=== PATIENT | female | born 1975 | race Two or more races ===

== ENCOUNTER 2017-09-10 21:55 | Emergency (ER) | payer OTHER ==
[~2017-09-10] VITALS: Ht 152.4 cm; Wt 65.8 kg
[2017-09-10] MEDS ORDERED: ACETAMINOPHEN ES 500 MG TABLET PO ONE (22:30)
[2017-09-10] MEDS ORDERED: LORAZEPAM INJ 2 MG/ML VIAL IV ONE (22:30)
[2017-09-10] MEDS ORDERED: IV NS 0.9% 1,000 ML BAG IV ONE (22:30)
[2017-09-10] MEDS ORDERED: LORAZEPAM INJ 2 MG/ML VIAL ONE (22:30)
[2017-09-10] MEDS ORDERED: ACETAMINOPHEN ES 500 MG TABLET ONE (22:32)
[2017-09-10] MEDS ORDERED: LABETALOL HCL IV 100MG VIAL ONE (23:11)
[2017-09-10] MEDS ORDERED: hydrALAZINE HCL IV 20 MG VIAL ONE (23:12)
[2017-09-10] MEDS ORDERED: LABETALOL HCL IV 100MG VIAL IV ONE (23:30)
[2017-09-10] MEDS ORDERED: hydrALAZINE HCL IV 20 MG VIAL IV ONE (23:30)
[2017-09-10 23:36] VITALS: BP 166/90
== END 2017-09-10 23:45 ==
LOC: ER 22:00
DX: Z02.89 Encounter for other administrative examinations (principal); E86.0 Dehydration; R51 Headache; R45.1 Restlessness and agitation; R03.0 Elevated blood-pressure reading, without diagnosis of hypertension
CPT/HCPCS: 93005; 96361; 96374; 96375; 99284; A4606; J0360; J2060; J7030; Z7610; J3490

== ENCOUNTER 2022-03-16 21:57 | Inpatient (IN) | payer MEDICAID ==
[~2022-03-16] VITALS: Ht 152.4 cm; Wt 71.2 kg
[2022-03-16] MEDS ORDERED: LOSA1TAB39 PO (22:28)
[2022-03-16] MEDS ORDERED: AMLO-213 PO (22:28)
[2022-03-16 22:30] VITALS: BP 146/92
--- NOTE | 2022-03-16 22:40 | NUR ---
RN notes Received report from [facility] ER, Nilam He RN at 2054.
--- NOTE | 2022-03-16 22:40 | NUR ---
shut off worker notes Received Pt direct admit from [facility]. Pt arrived accompanied by two EMT (Delmi and Nasim. Pt is alert and orientedX4. VS is stable. on room air. No SOB. no S/S of distress noted. Pt is able to ambulates with a steady gait. IV site at LFA# 20 is clean, intact and flushes easily. Skin assessment is done and performed. Pt's skin is intact. Pt's belonging was checked by DYLAN Kirk and signed by Pt. [place] Pt to the room and the use of call light. Safety precautions is maintained. bed at low position, brakes locked, side rails upX2, hob elevated and call light is within reach. Will continue to monitor.
[2022-03-16] MEDS ORDERED: Z GUARD REMEDY 4 OZ OINT TP PRN (23:00)
[2022-03-16] MEDS ORDERED: ONDANSETRON HCL/PF 4 MG/2 ML VIAL IVP PRN (23:00)
[2022-03-16] MEDS ORDERED: ZOLPIDEM TARTRATE 5 MG TABLET PO PRN (23:00)
[2022-03-16] MEDS ORDERED: PHARMACY ADD 1 AMP MVI TO IVF DAILY ONE BAG XX PRN (23:00)
[2022-03-16] MEDS ORDERED: MAGNESIUM HYDROXIDE 30 ML UDC PO PRN (23:00)
[2022-03-16] MEDS ORDERED: Folic acid 1 MG in IV D5W 50 ML IV SCH (23:00)
[2022-03-16] MEDS ORDERED: MAG HYDROX/AL HYDROX/SIMETH 30 ML UDC PO PRN (23:00)
[2022-03-16] MEDS ORDERED: Thiamine 100 MG in IV D5W 50 ML IV SCH (23:00)
[2022-03-16] MEDS: IV NS 0.9% 1,000 ML IV SCH (23:26)
[2022-03-16] MEDS ORDERED: Thiamine 100 MG/ML VIAL ONE (23:42)
[2022-03-16] MEDS ORDERED: Folic acid 1 MG/0.2 ML VIAL ONE (23:42)
[2022-03-16] MEDS: LORAZEPAM INJ 2 MG/ML VIAL IV PRN (23:48)
--- NOTE | 2022-03-16 23:48 | NUR ---
RN notes Pt is feeling anxious and requesting meds. administered ativan 2 mg/iv push/prn as ordered for anxiety. safety precautions is maintained. will continue to monitor.
--- NOTE | 2022-03-17 | NUR ---
RN notes Called House sup. regarding Pt's MVI. Per Yudy fleming RN, we don't have MVI at this time. Will call pharmacy in the morning.
[2022-03-17 06:08] LABS: BASOPHILS % (AUTO) 0.7 % (0.0-2.0); EOSINOPHILS % (AUTO) 5.3 % (0.0-6.0); HEMATOCRIT 30 % (33-45); HEMOGLOBIN 10.2 g/dL (11.5-14.8); LYMPHOCYTES # (AUTO) 0.4 K/uL (0.8-4.8); LYMPHOCYTES % (AUTO) 13.6 % (20.0-44.0); MEAN CORPUSCULAR HGB CONC 35 g/dl (31.0-36.0); MEAN CORPUSCULAR VOLUME 92 fL (82-100); MONOCYTES # (AUTO) 0.2 K/uL (0.1-1.30); MONOCYTES % (AUTO) 7.9 % (2.0-12.0); NEUTROPHILS # (AUTO) 2.1 K/uL (1.8-8.9); NEUTROPHILS % (AUTO) 72.5 % (43.0-81.0); PLATELET COUNT (AUTO) 63 K/uL (150-450); RED BLOOD CELL COUNT(AUTO) 3.22 MIL/uL (4.0-5.2); WHITE BLOOD COUNT (AUTO) 2.9 K/uL (4.3-11.0)
--- NOTE | 2022-03-17 06:14 | NUR ---
RN notes Pharmacist Selam called regarding MVI. Informed pharmacist that we don't have MVI last night. And also informed pharmacist that only NS is infuising. Pharmacist stated that will have MVI today and will adjust the time. Will endorse to am nurse.
--- NOTE | 2022-03-17 06:37 | NUR ---
RN closing notes Pt is resting in bed comfortably. Pt is alert and orientedX4. On room air. No SOB. No S/s of distress noted. VS is stable. afebrile. IV site at LFA# 20 is clean, intact and infusing well NS@ 100 ml/hr. Routine meds were given as ordered. Kept Pt clean, dry and comfortable. Safety precautions is maintained. Bed at low position, brakes locked, side rails upX2, hob elevated and call light is within reach. Will endorse to am nurse for EMMANUEL.
[2022-03-17] MEDS ORDERED: MVI ADULT 10ML VIAL = 1AMP 10 ML in IV NS 0.9% 1,000 ML IV PRN (07:00)
[2022-03-17 07:09] LABS: EOSINOPHILS % (MANUAL) 10 % (0-4); LYMPHOCYTES % (MANUAL) 12 % (16-48); MONOCYTES % (MANUAL) 6 % (0-11.0); NEUTROPHILS % (MANUAL) 72 (42-76)
--- NOTE | 2022-03-17 07:26 | NUR ---
MS RN OPENING NOTES 304 RECEIVED PATIENT RESTING IN BED AWAKE, ALERT. PATIENT IS ORIENTED X4 AND STABLE ON ROOM AIR. ABLE TO MAKE NEEDS KNOWN. NO S/S OF SOB OR DISTRESS NOTED. VS STABLE PER PATIENT. IV SITE LFA #20 IS INTACT AND PATENT RUNNING NS @ 100ML/HR. SKIN INTACT. SAFETY PRECAUTIONS IN PLACE: BED AT LOW POSITION, BREAKS LOCKED, SIDE RAILS UP X2, HOB ELEVATED AND CALL LIGHT WITHIN REACH. WILL CONTINUE TO MONITOR FOR EMMANUEL.
[2022-03-17 08:32] VITALS: BP 114/79
[2022-03-17] MEDS ORDERED: LOSARTAN/HCTZ 50-12.5MG/ 1 EA TABLET PO SCH (09:00)
[2022-03-17] MEDS ORDERED: LOSARTAN POTASSIUM 50 MG TABLET PO SCH (09:00)
[2022-03-17 09:25] LABS: CALCIUM, SERUM 8.3 mg/dL (8.5-10.1); CREATININE 2.3 mg/dL (0.6-1.3); MAGNESIUM 1.5 mg/dL (1.8-2.4); PHOSPHORUS 4.2 mg/dL (2.5-4.9); POTASSIUM 3.6 mmol/L (3.5-5.1)
[2022-03-17] MEDS: CYANOCOBALAMIN 500 MCG TABLET PO SCH (10:06)
[2022-03-17] MEDS: AMLODIPINE BESYLATE 10 MG TABLET PO SCH (10:06)
[2022-03-17] MEDS: HYDROCHLOROTHIAZIDE 25 MG TABLET PO SCH (10:06)
[2022-03-17] MEDS: IV NS 0.9% 1,000 ML IV SCH ×2 (10:07→19:00)
[2022-03-17] MEDS: LORAZEPAM INJ 2 MG/ML VIAL IV PRN (10:42)
--- NOTE | 2022-03-17 10:42 | NUR ---
PT WAS FEELING ANXIOUS AND WANTED TO CALM DOWN. PRN ATIVAN GIVEN AT 1042. WILL CONTINUE TO MONITOR AND ASSESS NEEDED.
--- NOTE | 2022-03-17 12:41 | NUR ---
RN NOTES PT NOTED WITH LOW LEVEL MAGNESIUM 1.5, DR. SANFORD NOTIFIED, NEW ORDER TO GIVE MAGNESIUM 1MG IV X 2 DOSES. WILL CARRY OUT NEW ORDER.
[2022-03-17] MEDS ORDERED: Magnesium 1GM/D5W 100ML PREMIX PIGGYBACK IV ONE (13:00)
[2022-03-17] MEDS: Magnesium 1GM/D5W 100ML PREMIX 100 ML IV SCH ×2 (13:40→14:47)
[2022-03-17 16:40] VITALS: BP 113/69
--- NOTE | 2022-03-17 19:00 | NUR ---
RN opening notes Pt is resting in bed comfortably. Pt is alert and orientedX4. On room air. No SOB. No S/s of distress noted. IV site at LFA# 20 is clean, intact and infusing well NS@ 100 ml/hr. Safety precautions is maintained. Bed at low position, brakes locked, side rails upX2, hob elevated and call light is within reach. Will continue to monitor.
--- NOTE | 2022-03-17 19:36 | NUR ---
MS RN CLOSING NOTES 304 PATIENT RESTING IN BED AWAKE, ALERT. PATIENT IS ORIENTED X4 AND STABLE ON ROOM AIR. NO S/S OF SOB OR DISTRESS NOTED OR VERBALIZED. VS STABLE PER PATIENT. IV SITE LFA #20 IS INTACT AND PATENT RUNNING NS @ 100ML/HR. SKIN INTACT. PRN ATIVAN GIVEN ONCE DURING THE SHIFT. MAGNESIUM WAS REPLACED WITH 2G OF IV PIGGYBACK. PATIENT AMBULATORY AND CONTINENT. PT IS CONTINENT AND AMBULATORY. SAFETY PRECAUTIONS MAINTAINED: BED AT LOW POSITION, BREAKS LOCKED, SIDE RAILS UP X2, HOB ELEVATED AND CALL LIGHT WITHIN REACH. ENDORSED TO NEXT SHIFT EMMANUEL.
[2022-03-17 19:43] LABS: BILIRUBIN,URINE NEGATIVE (NEGATIVE); COLOR,URINE YELLOW (YELLOW); LEUKOCYTE ESTERASE ,URINE NEGATIVE (NEGATIVE); NITRITE, URINE NEGATIVE (NEGATIVE); PH,URINE 7.5 (5.0-8.0); PROTEIN,URINE NEGATIVE (NEGATIVE); UGLUCOSE NEGATIVE (NEGATIVE)
[2022-03-17 20:00] VITALS: BP 137/89
[2022-03-17 20:14] LABS: BACTERIA,URINE None seen /HPF (None Seen); RBC,URINE 0-2 /HPF (0-2); SQUAMOUS EPITHELIAL CELL,UR 0-2 /HPF (None Seen); WBC,URINE 0-2 /HPF (0-3)
[2022-03-17] MEDS: ACETAMINOPHEN 325 MG TABLET PO PRN (20:23)
--- NOTE | 2022-03-17 20:23 | NUR ---
RN notes Pt is complaining of back pain and requesting tylenol. administered tylenol 650mg/po/prn as ordered. will continue to monitor.
[2022-03-17] MEDS ORDERED: THIAMINE HCL 100 MG TABLET PO SCH (23:00)
[2022-03-17] MEDS ORDERED: FOLIC ACID 1 MG TABLET PO SCH (23:00)
[2022-03-18] MEDS: IV NS 0.9% 1,000 ML IV SCH ×2 (04:39→15:00)
[2022-03-18 06:19] LABS: BASOPHILS % (AUTO) 0.9 % (0.0-2.0); EOSINOPHILS % (AUTO) 6.1 % (0.0-6.0); HEMATOCRIT 30 % (33-45); HEMOGLOBIN 10.1 g/dL (11.5-14.8); LYMPHOCYTES # (AUTO) 0.4 K/uL (0.8-4.8); MEAN CORPUSCULAR HGB CONC 34 g/dl (31.0-36.0); MEAN CORPUSCULAR VOLUME 93 fL (82-100); MONOCYTES # (AUTO) 0.2 K/uL (0.1-1.30); MONOCYTES % (AUTO) 8.7 % (2.0-12.0); NEUTROPHILS # (AUTO) 1.8 K/uL (1.8-8.9); NEUTROPHILS % (AUTO) 67.3 % (43.0-81.0); PLATELET COUNT (AUTO) 71 K/uL (150-450); RED BLOOD CELL COUNT(AUTO) 3.18 MIL/uL (4.0-5.2); WHITE BLOOD COUNT (AUTO) 2.6 K/uL (4.3-11.0)
--- NOTE | 2022-03-18 06:30 | NUR ---
RN closing notes Pt is resting in bed comfortably. Pt is alert and orientedX4. On room air. No SOB. No S/s of distress noted. IV site at LFA# 20 is clean, intact and infusing well NS@ 100 ml/hr. Routine meds were given as ordered. Kept Pt clean, dry and comfortable. Safety precautions is maintained. Bed at low position, brakes locked, side rails upX2, hob elevated and call light is within reach. Will endorse to am nurse for EMMANUEL.
[2022-03-18 06:52] LABS: CALCIUM, SERUM 8.3 mg/dL (8.5-10.1); CREATININE 1.1 mg/dL (0.6-1.3); POTASSIUM 3.8 mmol/L (3.5-5.1)
--- NOTE | 2022-03-18 07:27 | NUR ---
MS RN OPENING NOTES RECEIVED PATIENT RESTING IN BED. PATIENT IS ORIENTED X4 AND ON ROOM AIR. ABLE TO MAKE NEEDS KNOWN. NO S/S OF SOB OR DISTRESS NOTED. IV SITE LFA #20 IS INTACT AND PATENT RUNNING MULTIVITAMINS @ 100ML/HR. SKIN INTACT. SAFETY PRECAUTIONS IN PLACE: BED AT LOW POSITION, BREAKS LOCKED, SIDE RAILS UP X2, HOB ELEVATED AND CALL LIGHT WITHIN REACH. WILL CONTINUE TO MONITOR FOR EMMANUEL.
[2022-03-18 08:00] VITALS: BP 117/80
[2022-03-18] MEDS: CYANOCOBALAMIN 500 MCG TABLET PO SCH (08:33)
[2022-03-18] MEDS: AMLODIPINE BESYLATE 10 MG TABLET PO SCH (08:33)
[2022-03-18] MEDS: HYDROCHLOROTHIAZIDE 25 MG TABLET PO SCH (08:34)
[2022-03-18] MEDS ORDERED: MULTIVITAMINS,THERAGRAN 1 UDTAB TABLET PO SCH (09:00)
--- NOTE | 2022-03-18 12:45 | NUR ---
SS consult: SS Consult requested for alcohol abuse. The pt. is a 46-year-old Female patient who was BIBRA as a direct admit from [place]. Upon SS consult, the pt. is Alert & Oriented x 4 and makes good eye contact. The pt. appears well-groomed and remains calm & cooperative. Pt. denies SI/HI and denies hallucinations. The pt.s thought process and thought content are WNL. The pt. has Depressed mood & flat affect. Pt.s speech is WNL. SW explored pt.s living situation. Patient stated that she lives with her partner, Cesar Busby [phone] at [[id number] [facility] [id number]]. SW explored pt.s mental health Hx. Patient denies any diagnosis or taking any medication for her mental health. SW explored pt.s drug & ETOH use. Pt. denies any drug use. However, pt. states she has been drinking since high school and currently drinks 2 pints of Whiskey/day. Pt. states that her father is an alcoholic and her aunt who raised her also drank daily. Patient states she is a functional alcoholic as she can hold up a full-time job and enjoys staying occupied. This clinical social work aide provided support with motivational interviewing, along with education regarding alcohol dependence, brief intervention and referral to treatment. Patient refused referral to a rehab but accepted the resources and stated she would join a support group and use resources to seek treatment. Per pt. she is ambulatory and independent with all her ADLs. SW explored pt.s support system. Pt. states her partner is her support system. Plan: TERESA provided pt. with addiction resources and pt. accepted them. Pt. stated her partner, Cesar Busby [phone] going to pick her up and she would return home at [[id number] [facility] [address]]. ADDICTION RESOURCES For Drugs and Alcohol [facility] sober living Referrals For Rehabilitation once sober Address:[address] [place] [address] [facility] [address] [place] [address] Detox/residential [facility] Substance Abuse Helpline ([facility]) Outpatient, residential treatment, recovery support for youth/adults [facility] www.actionfamilycounsCardio control.CensorNet [facility] Teen programs for drug/alcohol education and support Barbara Prado Laura. Program for adults, sliding scale provides support and education [facility] www.WebcollageThinkature.org [place]; Detox/residential treatment programs; transition to sober living [facility] www.cri-help.org [place]; Outpatient and residential treatment programs; transition to sober living [facility] TEL: [phone] [facility] Rikki Vickers; Outpatient education and supportive programs for teens and adults [facility] www.oasiswomensrecva [facility].org [place]; Residential treatment and work program for females only [facility] www.[facility].[employer] [place]: Outpatient/residential treatment program for teens and young adults [facility] www.[facility].org [facility] Detox, inpatient, outpatient for adults and youth [facility], [facility]. Anton; Outpatient programs and referrals to community residential programs. Alcoholics Anonymous -SFV information and meeting and scheduleswww.aa-intergroup.org Us-Ypih-Bfbagam https://al-anon.org/ [employer] support groups for family of alcoholics. Marijuana Anonymous www.madistrict6.org -SFV listing of meetings Narcotics Anonymous www.na.org SOBER LIVING RESOURCES [facility] www.soberhousing.net A non-profit agency that provides resources to recovery and sober living homes throughout [facility] Sober Living Homes: A Work in ProgressAlma Adalid [facility], [facility] Womens Sober Living Homes: [facility] x [phone] My New DANYELLE Carroll Odyssey HouseAdalid Vidalia Glasco [facility] Sober Living Homes: [facility] Counseling--Outpatient [facility] [address] [place] [address] [place] [address] (Specializes in in-depth psychotherapy for emotional distress: anxiety, depression, interpersonal conflicts, life transitions, childhood abuse) [facility] [address] [place] [address] (Assist with solving problem marital difficulties, separation & divorce, aging parents, & grief, chronic & terminal illness) [facility] [address] [place] [address] (Deal with loss & grief, anxiety, marital difficulties) Homebound/Mental Health Services [address], [address] [place] [address] (Provide in-home mental services to people who are incapable of leaving their homes) [facility] for Needs of the Elderly Senior Service/Resource Center [address] [place] [address] [facility] [address] [place] [address] Mental Health Services Yady Garces [address] [place] [address] Services: Outpatient therapy for children, teens, young adults, adults, older adults, and families; Psychiatric services, medication support Psychiatric Outpatient Services [facility] Partial Hospitalization and Intensive Outpatient Program (Managed Care and [place] Only)[address] [facility] [phone] [facility] Partial Hospitalization and Outpatient [address] [place], [place] [phone] [facility] [address] [place], [place] [phone] [facility] Partial Hospitalization and Outpatient [address], [phone] Crisis and Hotline Telephone Numbers 24-Hour service unless stated [place] Crisis Hotlines: [facility]/Crisis Line........[phone] Suicide Prevention Center (24 Hours).......[phone] Suicide Prevention Crisis Center.......[phone] (24 Hours) Assaults Against Women Hotline.........594.875.8510 (24 Hours -- [facility]) Women and Children Crisis Halfway...........[phone] (24 Hours) Child Abuse Hotline............269.907.4981 [facility] (24 Hours)..........[phone] Alcoholics Anonymous (24 Hours)..........[phone] Cocaine Anonymous (24 Hours)............[phone] Narcotics Anonymous (24 Hours)..........[phone] [address] [facility] [address], [place] [address]
[2022-03-18] MEDS: ACETAMINOPHEN 325 MG TABLET PO PRN (12:48)
--- NOTE | 2022-03-18 15:26 | NUR ---
RN NOTES DR. SANFORD INFORMED THAT DR. ZAVALETA HAS YET TO SEE THE PATIENT. DR. SANFORD SAYS PATIENT IS STABLE OKAY TO DISCHARGE.
--- NOTE | 2022-03-18 15:42 | NUR ---
RN NOTES PT REFUSED IV FLUIDS, STATES SHE IS GOING HOME SOON.
[2022-03-18 16:00] VITALS: BP 108/76
--- NOTE | 2022-03-18 18:10 | NUR ---
MS RASPBERRY CHECKER NOTES PATIENT DISCHARGE @1810 TO HOME ACCOMPANIED BY KAITLIN CARVAJALFRIENYuni, AND DESEAN RICHARDSON. PT STABLE, VERBALIZE UNDERSTANDING OF DISCHARGE INSTRUCTIONS. GIVEN EDUCATIONAL PACKETS FOR MEDICATION, ACUTE KIDNEY INJURY, ALCOHOL CESSATION AND ALCOHOL WITHDRAWAL AND ENCOURAGE ALCOHOL CESSATION, VERBALIZED UNDERSTANDING. SKIN INTACT AT DISCHARGE. INSTRUCTED TO FOLLOW-UP WITH PRIMARY DRMonica IN 1-2 WEEKS.
== END 2022-03-18 18:20 | disposition home or self-care (01) | DRG 422 ==
LOC: MED 21:57
PROVIDERS: ADMIT Nurse Practitioner Acute Care; ATTEND Nurse Practitioner Acute Care
DX: E86.0 Dehydration (principal); N17.0 Acute kidney failure with tubular necrosis; D61.818 Other pancytopenia; D69.59 Other secondary thrombocytopenia; Z90.49 Acquired absence of other specified parts of digestive tract; I10 Essential (primary) hypertension; E66.9 Obesity, unspecified; F10.20 Alcohol dependence, uncomplicated; Y90.9 Presence of alcohol in blood, level not specified; Z98.891 History of uterine scar from previous surgery; Z79.899 Other long term (current) drug therapy; Z68.30 Body mass index [BMI] 30.0-30.9, adult; F32.A Depression, unspecified
CPT/HCPCS: 36415; 76770-TC; 80048-TC; 80061-TC; 81001; 83735-TC; 84100-TC; 84300-TC; 84703-TC; 85025-TC; 87081-TC; G0378; J2060; J3411; J3475; J3490; J7030; J7060